=== PATIENT | male | born 1945 | race Caucasian/White ===

== ENCOUNTER → 2018-09-11 07:44 | Outpatient (CLI) | payer MEDICARE, SELFPAY ==
--- NOTE | 2018-09-11 | DI.US.S_ITS ---
PROCEDURE: US ABDOMEN COMPLETE INDICATIONS: URTICARIA/RIGHT UPPER QUADRANT PAIN TECHNIQUE: Real-time scanning was performed of the abdominal and retroperitoneal organs, with image documentation. COMPARISON: None. FINDINGS: Liver: Liver is normal in size and homogeneous in echotexture, diffusely hyperechoic consistent with fatty infiltration. Gallbladder: No definite mobile gallstones are seen but there is a 8mm diameter echogenic structure that is non-mobile at the posterior wall of the gallbladder, without visualized internal vascularity, of uncertain etiology and clinical significance. Biliary ducts: Intrahepatic bile ducts are non-dilated. Extrahepatic bile duct caliber measures 5.7 mm. Normal is 6-7 mm or less in diameter, or 10 mm or less post-cholecystectomy. Pancreas: Visualized portions of the pancreas are sonographically normal. Spleen: Spleen is normal in size and homogeneous in echotexture. Kidneys: Kidneys are normal in size and echotexture. Right kidney measures 10.7 cm long; left kidney measures 11.1 cm long. No hydronephrosis or nephrolithiasis. No solid masses. Aorta: Visualized aorta is normal in caliber at less than 3 cm. Iliacs: Proximal common iliac arteries are normal in caliber at less than 2.5 cm. IVC: Intrahepatic inferior vena cava is patent. Miscellaneous: No free abdominal fluid. IMPRESSION: Echogenic non-mobile focus without visualized internal blood flow or posterior shadowing located at the posterior wall of the gallbladder, which may represent adherent sludge but a small gall bladder mucosal neoplasm such as atypical polyp could produce this appearance. A followup ultrasound in 3 months and an additional 6 months thereafter is recommended to further assess this area. That study should be targeted single organ evaluation. Echogenic liver parenchyma consistent with hepatic steatosis. Dictated by: Raimundo Corrales M.D. on 09/11/2018 at 10:30 Approved by: Raimundo Corrales M.D. on 09/11/2018 at 10:33
== END ==
PROVIDERS: PCP Family Medicine; Visit Provider Family Medicine
DX: R10.11 Right upper quadrant pain (principal); L50.9 Urticaria, unspecified
CPT/HCPCS: 76700

== ENCOUNTER → 2020-01-15 09:51 | Outpatient (CLI) | payer MEDICARE, SELFPAY ==
[2020-01-16 06:46] LABS: COVID19 Sendout Not Detected (Not Detect)
== END ==
PROVIDERS: PCP Family Medicine; Visit Provider Nurse Practitioner
DX: Z03.818 Encounter for observation for suspected exposure to other biological agents ruled out (principal)
CPT/HCPCS: 87635

== ENCOUNTER → 2024-02-27 11:37 | Outpatient (CLI) | payer MEDICARE, SELFPAY ==
--- NOTE | 2024-02-27 11:38 | DI.CT.S_ITS ---
PROCEDURE: CT UE RT WO CON INDICATIONS: PRIMARY OSTEOARTHRITIS, RT SHOULDER TECHNIQUE: Noncontrast 0.75 mm thick sections acquired from the acromioclavicular joint to the inferior scapula, with coronal and sagittal reformatting. For radiation dose reduction, the following was used: automated exposure control, adjustment of mA and/or kV according to patient size. COMPARISON: [facility] [place], CR, XR SHOULDER 2+ VIEWS BILATERAL, 10/17/2023, 14:06. FINDINGS: Image quality: Excellent. Bones: No acute osseous fracture or dislocation. Severe degenerative changes are seen at the glenohumeral joint with full-thickness joint space narrowing, subchondral sclerosis, subchondral cystic changes, marginal osteophyte formation, and remodeling of the articular surfaces. There is approximately 14 degrees glenoid retroversion relative to the midplane of the scapula at the mid glenoid level. Moderate acromioclavicular osteoarthrosis. Degenerative changes are seen at the included spine. Included ribs are intact. Soft tissues: Moderate glenohumeral effusion. Multiple small calcified intra-articular loose bodies are seen on the superior aspect of the glenohumeral joint. The rotator cuff musculature is normal in bulk. The tendons, ligaments, articular cartilages, and labrum are not well evaluated with CT. Included portions of the lung are clear. No axillary lymphadenopathy. IMPRESSION: 1. Severe glenohumeral osteoarthrosis with remodeling of the articular surfaces resulting in approximately 14 degrees glenoid retroversion relative to the midplane of the scapula. 2. Moderate glenohumeral effusion with small calcified intra-articular loose bodies. 3. Moderate acromioclavicular joint osteoarthrosis. Approved by: Nikita Rudolph M.D. on 02/28/2024 at 13:56
--- NOTE | 2024-02-27 16:16 | EKG_ITS ---
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
[2024-02-27 17:47] LABS: Add Manual Diff / Slide Review NO; Basophils Absolute Auto 100 /uL (0-100); Basophils Percent Auto 0.8 % (0-2); Eosinophils Absolute Auto 100 /uL (0-450); Eosinophils Percent Auto 2.1 % (2-4); Hematocrit 39.9 % (41-53); Hemoglobin 13.6 g/dL (13.5-17.5); Lymphocytes Absolute Auto 1800 /uL (1100-4500); Lymphocytes Percent Auto 27.6 % (25-40); Mean Corpuscular HGB Conc 34.1 % (30-36); Mean Corpuscular Volume 90.9 fL (80-100); Monocytes Absolute Auto 500 /uL (0-900); Monocytes Percent Auto 7.1 % (3-14); Neutrophils Absolute Auto 4000 /uL (1500-7000); Neutrophils Percent Auto 62.4 % (50-75); Platelet Count 300 X10^3/uL (150-400); Red Blood Cell Count 4.38 X10^6/uL (4.5-5.9); Red Cell Distribution Width 14.4 % (11.6-14.8); White Blood Cell Count 6.4 X10^3/uL (4.5-11.0)
[2024-02-27 18:02] LABS: INR 1.1 (0.9-1.3); Prothrombin Time 12.8 SECONDS (9.4-12.5)
[2024-02-27 18:42] LABS: PTT Partial Thromboplastin Tim 31 SECONDS (25.1-36.5)
[2024-02-27 18:57] LABS: BUN Creatinine Ratio 24.7 (6-22); Blood Urea Nitrogen 24 mg/dL (9-20); Calcium 9.6 mg/dL (8.4-10.2); Carbon Dioxide 26 mmol/L (22-32); Chloride 103 mmol/L (98-107); Estimated Glomerular Filt Rate > 60 mL/min (>60); Glucose 94 mg/dL (80-110); HEMOLYSIS < 15 (0-50); Potassium 4.8 mmol/L (3.4-5.1); Sodium 137 mmol/L (137-145)
== END ==
PROVIDERS: PCP Family Medicine; Referring Provider Orthopaedic Surgery; Visit Provider Orthopaedic Surgery
DX: Z01.818 Encounter for other preprocedural examination (principal); M25.411 Effusion, right shoulder; Z01.812 Encounter for preprocedural laboratory examination; M19.011 Primary osteoarthritis, right shoulder; M24.011 Loose body in right shoulder; Z51.81 Encounter for therapeutic drug level monitoring
CPT/HCPCS: 36415; 73200; 80048; 85025; 85610; 85730; 93005; 93010

== ENCOUNTER 2024-02-29 06:12 | Day surgery (SDC) | payer MEDICARE, SELFPAY ==
[2024-02-26 14:04] VITALS: BMI 24.6
--- NOTE | 2024-02-29 06:00 | DI.RAD.S_ITS ---
PROCEDURE: XR SHOULDER RT MIN 2V INDICATIONS: TSA TECHNIQUE: 2 views of the shoulder were acquired. COMPARISON: None. FINDINGS: Bones: Expected immediate postoperative appearance status post resurfacing of the humeral head. No evidence of hardware failure or loosening. No fractures or dislocations. No suspicious bony lesions. Visualized ribs appear intact. Soft tissues: No suspicious soft tissue calcifications. IMPRESSION: Expected immediate postoperative appearance. Dictated by: José Luis Bustos M.D. on 02/29/2024 at 10:29 Approved by: José Luis Bustos M.D. on 02/29/2024 at 10:30
[2024-02-29 06:43] VITALS: BMI 25.0
[2024-02-29 06:50] VITALS: BP 154/99; PULSE 80; RESP 16; TEMP 36.2; O2SAT 97
[2024-02-29] MEDS: LACTATED RINGERS 1,000 ML 42 ML IV (06:53)
[2024-02-29] MEDS: VANCOMYCIN 1,250 MG/250 ML PIGGYBACK 200 MG IV (07:00)
--- NOTE | 2024-02-29 07:19 | PM.PREOP ---
Pre-operative Note Interval Note History & Physical reviewed/Exam performed by Physician: Yes Changes to H&P: No
[2024-02-29] MEDS: GENTAMICIN 440 MG in SODIUM CHLORIDE 0.9% 100 ML 111 MG IV (07:53)
[2024-02-29] MEDS: TRANEXAMIC ACID 1,000 MG VIAL 1000 MG INJ ×2 (08:01→09:26)
--- NOTE | 2024-02-29 08:13 | SUR.OPER ---
Beach chair with Maquet shoulder positioner. Lower body on padded OR bed. Head in foam padded head cradle, secured with straps. Non-operative arm secured <90 degrees abduction. Pillows under knees. Safety belt at thigh. Cloth tape over blanket over lower legs.
[2024-02-29] MEDS: LIDOCAINE 1% W/EPI 20 ML INJ (08:18)
--- NOTE | 2024-02-29 10:10 | PM.OP.1 ---
Operative Date/Time/Diagnoses Date of procedure: 02/29/24 Time of procedure: 08:00 Pre-op diagnosis: End-stage arthritis right glenohumeral joint Post-op diagnosis: same Procedure & Clinicians Procedure: Right total shoulder arthroplasty Same procedure as scheduled: Yes Indications: End-stage arthritis glenohumeral joint right Surgeon: Master Aragon Operations Support Analyst: Ralf Morales Anesthesia Type: General and Peripheral nerve block Operative Notes Findings: End-stage arthritis to the glenohumeral joint with no sign of any significant rotator cuff pathology. Closure Type: primary Applied: implant(s) (53 x 20 head. Large glenoid. Fifty-three trunnion. Extra large cage screw.) Estimated Blood Loss (mL): 50 Procedure in detail: On date of service, Patient was met in the holding area. The operative site was signed and witnessed by the OR staff. The surgeries once again discussed with the patient and any remaining questions they had were answered fully. Patient was taken back to the operating theater and placed on the operating table in a supine position. Great care was taken to ensure that all bony prominences were properly padded. Patient was then placed into the beach chair position. The head and neck were properly positioned and secured. A timeout was performed verifying patient's name, procedure, and the operative site. The right upper extremity was then prepped and draped in the normal sterile fashion. Previously, the bony anatomy and incision were marked out as well as injected with Marcaine with epinephrine. A deltopectoral approach was performed. 10 blade was used to incise the skin and fascial tissue. A deep knife was used to continue sharp dissection until the cephalic vein was visualized. The cephalic vein was dissected free allowing us to expose the deltopectoral interval. This interval was then developed. A Taylor elevator was used to free up the deltoid of any scarring both superficially as well as deeply. The vein and the deltoid were taken laterally while the pectoralis was taken medially. This gave us good visualization of the strap muscles. The clavipectoral fascia was removed and the strap muscles were then retracted medially with the pectoralis. This gave us stabilization of the subscapularis. The circumflex vessels were ligated and the subscapularis was sharply excised off the lesser tuberosity and then tagged. Once the subscapularis was released we're able to dislocate the shoulder. Patient had end-stage arthritic changes to the humeral head as well as the glenoid with large osteophytes anterior inferiorly as well as posteriorly. A Ronger was then used to remove the osteophytes. See findings above for descriptions of the humeral head and glenoid. Next, cutting guide was placed and a saw was used to remove the humeral head. Once the head was removed it was templated. A 53 gave us the best coverage. Extra-large osteotomy coverage was placed to protect the osteotomy site. The subscapularis was freed up and a 360? fashion. The degenerative anterior and inferior capsular tissue was removed. This was followed by removing the degenerative labral tissue from around the glenoid as well as the biceps insertion. Retractors were used to protect the axillary nerve while we remove the degenerative capsular and labral tissue. This gave us good visualization of the glenoid. Glenoid trials were used until we found the appropriate fit and curvature. A large glenoid provided the best fit. The center hole was drilled followed by reaming of the glenoid. The wound was copiously irrigated after reaming. Next the pegs were drilled and a trial glenoid was impacted into place. Once we were satisfied with the preparation of the glenoid, the final component was cemented into place. This was followed by impaction. We Return to our attention back to the humerus. The protector plate was removed and heads were trialed once again until we found the appropriate fit. Once again the 53 x 20 head provided the best coverage as well as stability to the glenohumeral joint. Trials were removed and bone tunnels were made into the humeral neck. #2 FiberWire were passed through the bone tunnels for eventual subscapularis repair. The 53 trunnion was impacted into place and then an extra large cage screw was placed. This was then followed by the 53 x 20 head. Were impacted into place and the shoulder was reduced. It was taken through range of motion and was felt to be stable in both posterior translation as well as external and internal rotation with abduction. The subscapularis was repaired back to the lesser tuberosity through the bone tunnels. This was then reinforced with soft tissue repair. Part of the rotator interval was then closed. A drain was placed and the rest of the wound was closed in a layered fashion. The shoulder was then cleaned dried and dressed and the patient was taken to the PACU in stable condition. Patient will follow our postoperative protocol for total shoulder arthroplasty. Complications: none Post-operative Condition: stable Disposition: same day surgery Plan for aftercare: Patient will follow our postoperative protocol for total shoulder arthroplasty.
[2024-02-29 10:11] VITALS: BP 123/89; PULSE 99; RESP 16; TEMP 36.2; O2SAT 97
[2024-02-29 10:15] VITALS: BP 124/88; PULSE 99; RESP 16; O2SAT 95
[2024-02-29 10:20] VITALS: BP 102/68; PULSE 102; RESP 16; O2SAT 94
[2024-02-29] MEDS: ACETAMINOPHEN 325 MG TABLET 650 MG PO (10:30)
[2024-02-29 10:31] VITALS: BP 120/78; PULSE 91; RESP 12; O2SAT 97
== END 2024-02-29 11:33 | disposition home or self-care (01) ==
LOC: OR 06:13 → AC 06:15
PROVIDERS: PCP Family Medicine; Referring Provider Orthopaedic Surgery; Visit Provider Orthopaedic Surgery
PROC: 0RQJ0ZZ Repair Right Shoulder Joint, Open Approach (ICD-10-PCS; CPT 23472; principal; 2024-02-29 07:45)
DX: M19.011 Primary osteoarthritis, right shoulder (principal); G89.18 Other acute postprocedural pain; M25.711 Osteophyte, right shoulder
CPT/HCPCS: 23472; 64450; 73030; C1776; J0330; J1170; J2250; J2405; J2704; J3010

== ENCOUNTER 2024-10-25 14:11 | Emergency (ER) | payer MEDICARE, SELFPAY ==
[2024-10-25] VITALS (23 sets, daily range): BP systolic 144–186; BP diastolic 66–98; PULSE 71–86; RESP 11–20; TEMP 37; O2SAT 95–100; BMI 25.7
--- NOTE | 2024-10-25 14:43 | ED_ITS ---
HPI - Skin/Abscess/Foreign Bdy <Robyn Marquez PA-C - Last Filed: 10/25/24 20:40> General Chief complaint: Skin/Abscess/Foreign Body Stated complaint: Vomiting pcp ref Time Seen by Provider: 10/25/24 14:27 History of Present Illness HPI narrative: Mr. Guerrero is a very pleasant 78-year-old male with a past medical history of hypertension, hyperlipidemia, prior esophageal dysphagia/Lombardi's esophagus > 7 years ago, prior seizure 1.5 years ago and some memory concerns on Memantine who presents to the emergency department from [place] for dysphagia since last night. Patient states last night he was eating meat stew when he felt a piece of meat get stuck in his chest/throat. He has struggled with dysphagia in the past, over 7 years ago so he made himself throw up the piece of meat and then typically he states he feels better however since last night he persistently has been unable to keep down any foods or liquids. Patient is having no difficulty breathing or speaking. States that when he eats solids or drinks water he is able to completely swallow it but then it feels like it gets stuck in his chest and he shortly has to throw up after. At rest he feels overall well but does notice some slight discomfort in the sternum region. He denies abdominal pain, fevers, chills, dysuria, hematuria, diarrhea, constipation, shortness of breath. Prior surgical history includes right inguinal hernia repair, right melanoma removal, right shoulder repair. He takes diltiazem, memantine, and diclofenac. He does not smoke. Provides a clear history, but somewhat poor historian regarding his past medical history. Related Data Home Medications Medication Instructions Recorded Confirmed cholecalciferol (vitamin D3) 50 2 tab PO QDAY ##0 05/18/17 10/25/24 mcg (2,000 unit) tablet (Vitamin D3) diclofenac sodium 75 mg 75 mg PO BID PRN pain 02/26/24 10/25/24 tablet,delayed release memantine 5 mg tablet 5 mg PO DAILY 02/26/24 10/25/24 Allergies Allergy/AdvReac Type Severity Reaction Status Date / Time No Known Drug Allergies Allergy Verified 10/25/24 14:02 Review of Systems <Robyn Marquez PA-C - Last Filed: 10/25/24 20:40> Review of Systems ROS Unobtainable: All systems reviewed & are unremarkable except as noted in HPI and below Patient History <Robyn Marquez PA-C - Last Filed: 10/25/24 20:40> Medical History Seizure Surgical History Status post hernia repair (02/17/15) Social History household members: spouse Smoking Status: Never smoker alcohol intake: current Smoking Status: Never smoker alcohol intake frequency: a few times a week Exam <Robyn Marquez PA-C - Last Filed: 10/25/24 20:40> Narrative Exam Narrative: GENERAL: 78 year old patient appears stated age. Well-developed patient, in no acute distress. HEAD: Atraumatic. Normocephalic. EYES: Extraocular motions intact. No scleral icterus. No injection or drainage. ENT: Nose without bleeding, purulent drainage. Throat without erythema, tonsillar hypertrophy or exudate. Airway patent. NECK: Trachea midline. Cervical ROM intact. CARDIOVASCULAR: Regular rate and irregularly irregular rhythm. RESPIRATORY: ?Nonlabored respirations. ?Speaking in clear, full sentences. ?Clear to auscultation. Breath sounds equal bilaterally. GASTROINTESTINAL: Abdomen soft, non-tender, nondistended. EXTREMITIES: No edema or joint tenderness. NEURO: AOx3. ?Clear speech. ?Moves all 4 extremities appropriately. No pronator drift. No facial asymmetry. No leg drift. Able to provide a clear history. SKIN: No rash or erythema of visible areas Initial Vital Signs Initial Vital Signs: Vital Signs Temperature 98.6 F 10/25/24 14:14 Pulse Rate 77 10/25/24 14:14 Respiratory Rate 20 10/25/24 14:14 Blood Pressure 169/98 H 10/25/24 14:14 Pulse Oximetry 100 10/25/24 14:14 Oxygen Delivery Method Room Air 10/25/24 14:14 <Missy Toro DO - Last Filed: 10/26/24 02:50> Initial Vital Signs Initial Vital Signs: Vital Signs Temperature 98.6 F 10/25/24 14:14 Pulse Rate 77 10/25/24 14:14 Respiratory Rate 20 10/25/24 14:14 Blood Pressure 169/98 H 10/25/24 14:14 Pulse Oximetry 100 10/25/24 14:14 Oxygen Delivery Method Room Air 10/25/24 14:14 Course <Robyn Marquez PA-C - Last Filed: 10/25/24 20:40> Orders Ordered: Discontinued Medications Sodium Chloride (Normal Saline 0.9%) 1,000 mls @ 150 mls/hr IV CONT ABEL Last Admin: 10/25/24 20:04 Dose: 150 mls/hr Documented By: Vital Signs Vital signs: Vital Signs - 8 hr 10/25/24 19:00 10/25/24 19:00 10/25/24 19:30 Pulse Rate 73 76 Respiratory Rate 16 14 Blood Pressure 149/93 H Pulse Oximetry 99 97 Oxygen Delivery Method 10/25/24 19:30 10/25/24 20:00 10/25/24 20:01 Pulse Rate 79 79 Respiratory Rate 14 12 Blood Pressure 177/93 H Pulse Oximetry 96 96 Oxygen Delivery Method 10/25/24 20:01 10/25/24 20:30 10/25/24 20:30 Pulse Rate 76 Respiratory Rate 12 Blood Pressure 179/85 H 171/90 H Pulse Oximetry 96 Oxygen Delivery Method 10/25/24 21:00 10/25/24 21:00 10/25/24 21:30 Pulse Rate 77 82 Respiratory Rate 16 11 L Blood Pressure 159/86 H Pulse Oximetry 97 98 Oxygen Delivery Method 10/25/24 22:00 10/25/24 23:49 Pulse Rate 79 77 Respiratory Rate 13 13 Blood Pressure 153/66 H Pulse Oximetry 96 96 Oxygen Delivery Method Room Air <Missy Toro DO - Last Filed: 10/26/24 02:50> Orders Ordered: Discontinued Medications Sodium Chloride (Normal Saline 0.9%) 1,000 mls @ 150 mls/hr IV CONT ABEL Last Admin: 10/25/24 20:04 Dose: 150 mls/hr Documented By: Vital Signs Vital signs: Vital Signs - 8 hr 10/25/24 19:00 10/25/24 19:00 10/25/24 19:30 Pulse Rate 73 76 Respiratory Rate 16 14 Blood Pressure 149/93 H Pulse Oximetry 99 97 Oxygen Delivery Method 10/25/24 19:30 10/25/24 20:00 10/25/24 20:01 Pulse Rate 79 79 Respiratory Rate 14 12 Blood Pressure 177/93 H Pulse Oximetry 96 96 Oxygen Delivery Method 10/25/24 20:01 10/25/24 20:30 10/25/24 20:30 Pulse Rate 76 Respiratory Rate 12 Blood Pressure 179/85 H 171/90 H Pulse Oximetry 96 Oxygen Delivery Method 10/25/24 21:00 10/25/24 21:00 10/25/24 21:30 Pulse Rate 77 82 Respiratory Rate 16 11 L Blood Pressure 159/86 H Pulse Oximetry 97 98 Oxygen Delivery Method 10/25/24 22:00 10/25/24 23:49 Pulse Rate 79 77 Respiratory Rate 13 13 Blood Pressure 153/66 H Pulse Oximetry 96 96 Oxygen Delivery Method Room Air MDM - Skin/Abscess/Foreign Bdy <Robyn Marquez PA-C - Last Filed: 10/25/24 20:40> Medical Records Attestation: I reviewed the patient's medical records. Lab Data 10/25/24 14:47 10/25/24 14:47 Labs: Lab Results 10/25/24 Range/Units 14:47 WBC 6.5 (4.5-11.0) X10^3/uL RBC 4.58 (4.5-5.9) X10^6/uL Hgb 13.9 (13.5-17.5) g/dL Hct 41.7 (41-53) % MCV 91.0 (80-100) fL MCH 30.4 (26-34) PG MCHC 33.4 (30-36) % RDW 14.8 (11.6-14.8) % Plt Count 293 (150-400) X10^3/uL Neut % (Auto) 67.0 (50-75) % Lymph % (Auto) 23.2 L (25-40) % Wharton % (Auto) 7.8 (3-14) % Eos % (Auto) 1.1 L (2-4) % Baso % (Auto) 0.9 (0-2) % Neut # (Auto) 4400 (8742-6794) /uL Lymph # (Auto) 1500 (2827-0294) /uL Wharton # (Auto) 500 (0-900) /uL Eos # (Auto) 100 (0-450) /uL Baso # (Auto) 100 (0-100) /uL PT 11.9 (9.4-12.5) SECONDS INR 1.1 (0.9-1.3) APTT 33 (25.1-36.5) SECONDS Sodium 140 (137-145) mmol/L Potassium 4.4 (3.4-5.1) mmol/L Chloride 107 (98-107) mmol/L Carbon Dioxide 24 (22-32) mmol/L BUN 24 H (9-20) mg/dL Creatinine 0.96 (0.66-1.25) mg/dL Estimated GFR > 60 (>60) mL/min BUN/Creatinine Ratio 25.0 H (6-22) Glucose 107 H (70-99) mg/dL Calcium 9.3 (8.4-10.2) mg/dL Total Bilirubin 1.0 (0.2-1.3) mg/dL AST 30 (17-59) IU/L ALT 24 (<50) IU/L Alkaline Phosphatase 76 (38-126) U/L Total Creatine Kinase 92 (55-170) U/L Troponin I < 0.012 (0.01-0.034) ng/mL Total Protein 8.1 (6.3-8.2) g/dL Albumin 4.7 (3.5-5.0) g/dL Globulin 3.4 (1.7-4.1) g/dL Albumin/Globulin Ratio 1.4 (1.0-2.8) Lipase 18 L (23-300) U/L Imaging Data Chest x-ray: Radiologist's Impression: PROCEDURE: XR CHEST 1V INDICATIONS: chest pain dysphagia TECHNIQUE: One view of the chest was acquired. COMPARISON: None. FINDINGS: Surgical changes and devices: Partially visualized right shoulder arthroplasty. Lungs and pleura: Lungs are clear. No pleural effusions or pneumothorax. Mediastinum: Mediastinal contours appear normal. Heart size is normal. Bones and chest wall: No suspicious bony lesions. Overlying soft tissues appear unremarkable. IMPRESSION: No acute cardiopulmonary abnormality is seen. Dictated by: Delfino Fay M.D. on 10/25/2024 at 15:18 Approved by: Delfino Fay M.D. on 10/25/2024 at 15:22 Gastrografin Esophogram: Radiologist's Impression: PROCEDURE: ESOPHOGRAM W/O AIR INDICATIONS: Esophageal obstruction COMPARISON: None. FINDINGS: Morphology: Gastrografin reaches the distal esophagus where there is abrupt cutoff with associated filling defect. No contrast passed into the stomach. IMPRESSION: Complete obstruction at the distal esophagus just proximal to the GE junction with associated filling defect. Findings are concerning for underlying mass. Recommend EGD for further evaluation. Findings were communicated to the ER provider Robyn Marquez at the time of study. Dictated by: Delfino Fay M.D. on 10/25/2024 at 16:08 Approved by: Delfino Fay M.D. on 10/25/2024 at 16:10 [facility] Narrative Medical decision making narrative: 78-year-old male with a past medical history of hypertension, hyperlipidemia, prior esophageal dysphagia/Lombardi's esophagus > 7 years ago, prior seizure 1.5 years ago and some memory concerns on Memantine, melanoma R groin who presents to the emergency department from [place] for dysphagia since last night. Provides a clear history, but somewhat poor historian regarding his past medical history. Differential diagnosis includes but is not limited to esophageal dysphagia, diffuse esophageal spasm, food bolus, foreign body, esophageal web, malignancy, scleroderma, Schatzki ring, stricture, Zenker's diverticulum, ACS, etc. On exam patient is in no acute distress, nontoxic appearing, vital signs appropriate except for mildly elevated blood pressure. EKG obtained revealing atrial fibrillation, patient has no history of this. History is consistent with possible esophageal dysmotility/food bolus, patient has no airway compromise, he is able to swallow foods and liquids but they get ?stuck? in the chest and he then has to vomit. After evaluation of the patient I called the general surgeon on-call, Dr. Ko, to review patient history and ask about best imaging. He would like to proceed with Gastrografin contrast swallow study. This imaging modality will require radiology, waiting to hear back from radiologist on-call. Due to patient's complaints, new onset atrial fibrillation, he will be moved to the main emergency department from the fast track area for cardiac monitoring and higher level of care. Spoke with radiologist Dr. Fay, is agreeable to proceed with fluoroscopy esophagram with Gastrografin. Per radiologist's request, consulted surgeon again to specify Gastrografin to be used and not barium, surgeon discussed risks of possible aspiration of barium and would like to proceed with Gastrografin only, primary reason for study is to look for obstruction. Called by radiologist Dr. Fay, patient has an obstruction of the distal esophagus, informed surgeon Dr. Ko, he requests keeping patient NPO, admit to hospitalist, plan for scope tomorrow, patient can have maintenance IV fluids. Workup reveals EKG showing atrial fibrillation with normal rate, normal WBC count 6.5, hemoglobin 13.9, normal coags, normal sodium 140, potassium 4.4, BUN 24, creatinine 0.96 baseline. Glucose 107. Normal LFTs, negative troponin. Lipase 18. Hospitalist declines admission, would like transfer for higher level of care, surgeon in agreement, note documented below, pt agreeable to transfer, requesting something to relax him such as valium: 78 M with PMH of ? 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 It does appear he initially called PCP office which is documented below: Triaged patient for believed esophageal stricture or other issue that is not allowing him to swallow fluids. For example, he couldn't drink water this morning & had to spit it out. He has had this in the past & thinks a procedure had to be performed to help. He did have a red meat stew & red wine & since that meal, he started to note the difficulty swallowing. He can pin point the area in his esophagus. He denies any chest pain, SOB or difficulty breathing. His vitals are: WW=841/70, HR=73, SaO2+98%, RR=16 & stable. He is advised to go to the ER where imaging & potential imaging/scope can be done. He is also advised to [place] which allow him to have conscious sedation if needed for diagnosis. He agrees to plan & reports very slight improvement being able to swallow a bit of saliva before leaving. Manisha Ren performance manager in the ER shows complete obstruction on a gastrograffin study. Typically cases such as this transferred from [facility] as we are not able to manage his obstruction in the sense of possible stenting, surgical management, etc. I discussed this further with Dr. Ko of general surgery at this time, who is in agreement with transfer to higher level facility for further workup and management of his esophageal obstruction. 1824: Spoke with [facility] transfer center. 1914: Spoke with [facility] GI doctor arlin Chun, wants pt to go to closer GI doctor at [place] or [facility]. [facility] informed me [place] GI doctor caseload full, [facility] ER on divert. 1999: Spoke with hospitalist at [facility] Dr. Wood who accepts pt to med surg. Informed him that pt is starting to spit out some of his saliva for comfort which is change from earlier today. 2039pm: Discussed case with night physician Dr. Toro. <Missy Toro, DO - Last Filed: 10/26/24 02:50> Lab Data Labs: Lab Results 10/25/24 Range/Units 14:47 WBC 6.5 (4.5-11.0) X10^3/uL RBC 4.58 (4.5-5.9) X10^6/uL Hgb 13.9 (13.5-17.5) g/dL Hct 41.7 (41-53) % MCV 91.0 (80-100) fL MCH 30.4 (26-34) PG MCHC 33.4 (30-36) % RDW 14.8 (11.6-14.8) % Plt Count 293 (150-400) X10^3/uL Neut % (Auto) 67.0 (50-75) % Lymph % (Auto) 23.2 L (25-40) % Wharton % (Auto) 7.8 (3-14) % Eos % (Auto) 1.1 L (2-4) % Baso % (Auto) 0.9 (0-2) % Neut # (Auto) 4400 (1050-9874) /uL Lymph # (Auto) 1500 (5702-1719) /uL Wharton # (Auto) 500 (0-900) /uL Eos # (Auto) 100 (0-450) /uL Baso # (Auto) 100 (0-100) /uL PT 11.9 (9.4-12.5) SECONDS INR 1.1 (0.9-1.3) APTT 33 (25.1-36.5) SECONDS Sodium 140 (137-145) mmol/L Potassium 4.4 (3.4-5.1) mmol/L Chloride 107 (98-107) mmol/L Carbon Dioxide 24 (22-32) mmol/L BUN 24 H (9-20) mg/dL Creatinine 0.96 (0.66-1.25) mg/dL Estimated GFR > 60 (>60) mL/min BUN/Creatinine Ratio 25.0 H (6-22) Glucose 107 H (70-99) mg/dL Calcium 9.3 (8.4-10.2) mg/dL Total Bilirubin 1.0 (0.2-1.3) mg/dL AST 30 (17-59) IU/L ALT 24 (<50) IU/L Alkaline Phosphatase 76 (38-126) U/L Total Creatine Kinase 92 (55-170) U/L Troponin I < 0.012 (0.01-0.034) ng/mL Total Protein 8.1 (6.3-8.2) g/dL Albumin 4.7 (3.5-5.0) g/dL Globulin 3.4 (1.7-4.1) g/dL Albumin/Globulin Ratio 1.4 (1.0-2.8) Lipase 18 L (23-300) U/L MDM Narrative Medical decision making narrative: 78-year-old male with a past medical history of hypertension, hyperlipidemia, prior esophageal dysphagia/Lombardi's esophagus > 7 years ago, prior seizure 1.5 years ago and some memory concerns on Memantine, melanoma R groin who presents to the emergency department from [place] for dysphagia since last night. Provides a clear history, but somewhat poor historian regarding his past medical history. Differential diagnosis includes but is not limited to esophageal dysphagia, diffuse esophageal spasm, food bolus, foreign body, esophageal web, malignancy, scleroderma, Schatzki ring, stricture, Zenker's diverticulum, ACS, etc. On exam patient is in no acute distress, nontoxic appearing, vital signs appropriate except for mildly elevated blood pressure. EKG obtained revealing atrial fibrillation, patient has no history of this. History is consistent with possible esophageal dysmotility/food bolus, patient has no airway compromise, he is able to swallow foods and liquids but they get ?stuck? in the chest and he then has to vomit. After evaluation of the patient I called the general surgeon on-call, Dr. Ko, to review patient history and ask about best imaging. He would like to proceed with Gastrografin contrast swallow study. This imaging modality will require radiology, waiting to hear back from radiologist on-call. Due to patient's complaints, new onset atrial fibrillation, he will be moved to the main emergency department from the fast track area for cardiac monitoring and higher level of care. Spoke with radiologist Dr. Fay, is agreeable to proceed with fluoroscopy esophagram with Gastrografin. Per radiologist's request, consulted surgeon again to specify Gastrografin to be used and not barium, surgeon discussed risks of possible aspiration of barium and would like to proceed with Gastrografin only, primary reason for study is to look for obstruction. Called by radiologist Dr. Fay, patient has an obstruction of the distal esophagus, informed surgeon Dr. Ko, he requests keeping patient NPO, admit to hospitalist, plan for scope tomorrow, patient can have maintenance IV fluids. Workup reveals EKG showing atrial fibrillation with normal rate, normal WBC count 6.5, hemoglobin 13.9, normal coags, normal sodium 140, potassium 4.4, BUN 24, creatinine 0.96 baseline. Glucose 107. Normal LFTs, negative troponin. Lipase 18. Hospitalist declines admission, would like transfer for higher level of care, surgeon in agreement, note documented below, pt agreeable to transfer, requesting something to relax him such as valium: 78 M with PMH of ? 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 It does appear he initially called PCP office which is documented below: Triaged patient for believed esophageal stricture or other issue that is not allowing him to swallow fluids. For example, he couldn't drink water this morning & had to spit it out. He has had this in the past & thinks a procedure had to be performed to help. He did have a red meat stew & red wine & since that meal, he started to note the difficulty swallowing. He can pin point the area in his esophagus. He denies any chest pain, SOB or difficulty breathing. His vitals are: UU=059/70, HR=73, SaO2+98%, RR=16 & stable. He is advised to go to the ER where imaging & potential imaging/scope can be done. He is also advised to [place] ER which allow him to have conscious sedation if needed for diagnosis. He agrees to plan & reports very slight improvement being able to swallow a bit of saliva before leaving. Manisha Ren performance manager in the ER shows complete obstruction on a gastrograffin study. Typically cases such as this transferred from [facility] as we are not able to manage his obstruction in the sense of possible stenting, surgical management, etc. I discussed this further with Dr. Ko of general surgery at this time, who is in agreement with transfer to higher level facility for further workup and management of his esophageal obstruction. 1824: Spoke with [facility] [place]. 1914: [facility] wants [facility] to go to closer GI doctor at [place] or [facility]. [facility] informed me [place] GI doctor caseload full, [facility] ER on divert. 1999: Spoke with hospitalist at [facility] Dr. Wood who accepts pt to med surg. Informed him that pt is starting to spit out some of his saliva for comfort which is change from earlier today. Dr. Toro 10/25/24: Patient signed out to myself while awaiting transfer. Patient has had bed assigned. Patient was seen and evaluated by myself. Patient is seen briefly, he was resting comfortably handling secretions without issues. Discharge Plan Departure Patient Disposition: [facility] Clinical Impression: Esophageal obstruction Atrial fibrillation Qualifiers: Atrial fibrillation type: unspecified Qualified Code(s): I48.91 - Unspecified atrial fibrillation Prescriptions: No Action cholecalciferol (vitamin D3) [Vitamin D3] 2,000 UNIT tablet 2 tab PO QDAY Qty: 0 diclofenac sodium 75 mg tablet,delayed release (DR/EC) 75 mg PO BID PRN (Reason: pain) memantine 5 mg tablet 5 mg PO DAILY Referrals: Jacqueline Olivarez MD [Primary Care Provider] -
--- NOTE | 2024-10-25 14:51 | EKG_ITS ---
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
[2024-10-25 14:56] LABS: Add Manual Diff / Slide Review NO; Basophils Absolute Auto 100 /uL (0-100); Basophils Percent Auto 0.9 % (0-2); Eosinophils Absolute Auto 100 /uL (0-450); Eosinophils Percent Auto 1.1 % (2-4); Hematocrit 41.7 % (41-53); Hemoglobin 13.9 g/dL (13.5-17.5); Lymphocytes Absolute Auto 1500 /uL (1100-4500); Lymphocytes Percent Auto 23.2 % (25-40); Mean Corpuscular HGB Conc 33.4 % (30-36); Mean Corpuscular Hemoglobin 30.4 PG (26-34); Monocytes Absolute Auto 500 /uL (0-900); Monocytes Percent Auto 7.8 % (3-14); Neutrophils Absolute Auto 4400 /uL (1500-7000); Platelet Count 293 X10^3/uL (150-400); Red Blood Cell Count 4.58 X10^6/uL (4.5-5.9); Red Cell Distribution Width 14.8 % (11.6-14.8); White Blood Cell Count 6.5 X10^3/uL (4.5-11.0)
--- NOTE | 2024-10-25 14:58 | DI.RAD.S_ITS ---
PROCEDURE: XR CHEST 1V INDICATIONS: chest pain dysphagia TECHNIQUE: One view of the chest was acquired. COMPARISON: None. FINDINGS: Surgical changes and devices: Partially visualized right shoulder arthroplasty. Lungs and pleura: Lungs are clear. No pleural effusions or pneumothorax. Mediastinum: Mediastinal contours appear normal. Heart size is normal. Bones and chest wall: No suspicious bony lesions. Overlying soft tissues appear unremarkable. IMPRESSION: No acute cardiopulmonary abnormality is seen. Dictated by: Delfino Fay M.D. on 10/25/2024 at 15:18 Approved by: Delfino Fay M.D. on 10/25/2024 at 15:22
[2024-10-25 15:03] LABS: INR 1.1 (0.9-1.3); Prothrombin Time 11.9 SECONDS (9.4-12.5)
[2024-10-25 15:06] LABS: PTT Partial Thromboplastin Tim 33 SECONDS (25.1-36.5)
[2024-10-25 15:12] LABS: Alanine Aminotransferase 24 IU/L (<50); Albumin 4.7 g/dL (3.5-5.0); Albumin Globulin Ratio 1.4 (1.0-2.8); Alkaline Phosphatase 76 U/L (38-126); Aspartate Aminotransferase 30 IU/L (17-59); Blood Urea Nitrogen 24 mg/dL (9-20); Calcium 9.3 mg/dL (8.4-10.2); Carbon Dioxide 24 mmol/L (22-32); Chloride 107 mmol/L (98-107); Creatine Kinase 92 U/L (55-170); Estimated Glomerular Filt Rate > 60 mL/min (>60); Globulin 3.4 g/dL (1.7-4.1); Glucose 107 mg/dL (70-99); HEMOLYSIS < 15 (0-50); Lipase 18 U/L (23-300); Potassium 4.4 mmol/L (3.4-5.1); Sodium 140 mmol/L (137-145); Total Protein 8.1 g/dL (6.3-8.2)
--- NOTE | 2024-10-25 15:18 | DI.RAD.S_ITS ---
PROCEDURE: ESOPHOGRAM W/O AIR INDICATIONS: Esophageal obstruction COMPARISON: None. FINDINGS: Morphology: Gastrografin reaches the distal esophagus where there is abrupt cutoff with associated filling defect. No contrast passed into the stomach. IMPRESSION: Complete obstruction at the distal esophagus just proximal to the GE junction with associated filling defect. Findings are concerning for underlying mass. Recommend EGD for further evaluation. Findings were communicated to the ER provider Robyn Marquez at the time of study. Dictated by: Delfino Fay M.D. on 10/25/2024 at 16:08 Approved by: Delfino Fay M.D. on 10/25/2024 at 16:10
[2024-10-25 15:24] LABS: Troponin I < 0.012 ng/mL (0.01-0.034)
--- NOTE | 2024-10-25 17:14 | P.CALLCOV_ITS ---
Call Coverage Note Note Date of Patient Contact: 10/25/24 Narrative of Care Provided: 78 M with PMH of ? 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 It does appear he initially called PCP office which is documented below: Triaged patient for believed esophageal stricture or other issue that is not allowing him to swallow fluids. For example, he couldn't drink water this morning & had to spit it out. He has had this in the past & thinks a procedure had to be performed to help. He did have a red meat stew & red wine & since that meal, he started to note the difficulty swallowing. He can pin point the area in his esophagus. He denies any chest pain, SOB or difficulty breathing. His vitals are: KJ=779/70, HR=73, SaO2+98%, RR=16 & stable. He is advised to go to the ER where imaging & potential imaging/scope can be done. He is also advised to have [place] which allow him to have conscious sedation if needed for diagnosis. He agrees to plan & reports very slight improvement being able to swallow a bit of saliva before leaving. Manisha Ren RN Imaging in the ER shows complete obstruction on a gastrograffin study. Typically cases such as this transferred from [facility] as we are not able to manage his obstruction in the sense of possible stenting, surgical management, etc. I discussed this further with Dr. Ko of general surgery at this time, who is in agreement with transfer to higher level facility for further workup and management of his esophageal obstruction.
[2024-10-25] MEDS: SODIUM CHLORIDE 0.9% 1,000 ML 150 ML IV (20:04)
== END 2024-10-25 23:40 | disposition short-term general hospital (02) ==
PROVIDERS: Physician Assistant; Emergency Provider Emergency Medicine; PCP Family Medicine
DX: K22.2 Esophageal obstruction (principal); I48.91 Unspecified atrial fibrillation; I10 Essential (primary) hypertension; T17.928A Food in respiratory tract, part unspecified causing other injury, initial encounter; W44.F3XA Food entering into or through a natural orifice, initial encounter; Z87.19 Personal history of other diseases of the digestive system
CPT/HCPCS: 36415; 71045; 74220; 80053; 82550; 83690; 84484; 85025; 85610; 85730; 93005; 99284

== ENCOUNTER → 2025-03-06 09:02 | Outpatient (CLI) | payer MEDICARE, SELFPAY ==
[2025-03-06 10:35] LABS: Hematocrit 43.5 % (41-53); Hemoglobin 14.7 g/dL (13.5-17.5); Mean Corpuscular HGB Conc 33.8 % (30-36); Mean Corpuscular Hemoglobin 30.8 PG (26-34); Mean Corpuscular Volume 91.1 fL (80-100); Platelet Count 284 X10^3/uL (150-400)
[2025-03-06 11:12] LABS: Alanine Aminotransferase 21 IU/L (<50); Albumin 4.5 g/dL (3.5-5.0); Albumin Globulin Ratio 1.5 (1.0-2.8); Alkaline Phosphatase 74 U/L (38-126); Blood Urea Nitrogen 20 mg/dL (9-20); Calcium 9.3 mg/dL (8.4-10.2); Carbon Dioxide 24 mmol/L (22-32); Chloride 106 mmol/L (98-107); Cholesterol 192 mg/dL (140-199); Estimated Glomerular Filt Rate > 60 mL/min (>60); Globulin 3.1 g/dL (1.7-4.1); Glucose 109 mg/dL (70-99); HDL Cholesterol 71 mg/dL (40-60); HEMOLYSIS < 15 (0-50); Potassium 5.0 mmol/L (3.4-5.1); Sodium 140 mmol/L (137-145); Total Protein 7.6 g/dL (6.3-8.2); Triglycerides 82 mg/dL (35-150)
[2025-03-06 15:49] LABS: HIV 1 & 2 Ab/Ag 4th Gen Combo NEGATIVE (NEGATIVE); Hep C Virus Ab w/Reflex Quant NEGATIVE s/c (NEGATIVE)
== END ==
PROVIDERS: PCP Family Medicine; Referring Provider Family Medicine; Visit Provider Family Medicine
DX: I10 Essential (primary) hypertension (principal); E78.2 Mixed hyperlipidemia; Z13.9 Encounter for screening, unspecified
CPT/HCPCS: 36415; 80053; 80061; 85027; 86803; 87389